=== PATIENT | female | born 1940 | race Caucasian/White ===

== ENCOUNTER 2024-06-30 10:49 | Outpatient (CLI) | payer MEDICARE | END 2024-06-30 10:50 | disposition home or self-care (01) | LOC: CSHMAMMO 10:49 | PROVIDERS: ATTEND Family Medicine | DX: Z12.31 Encounter for screening mammogram for malignant neoplasm of breast (principal); Z80.3 Family history of malignant neoplasm of breast; Z85.038 Personal history of other malignant neoplasm of large intestine | CPT/HCPCS: 77063; 77067 ==